=== PATIENT | male | born 1950 | race Caucasian/White ===

== ENCOUNTER 2020-02-11 21:07 | Emergency (ER) | payer OTHER ==
[~2020-02-11] VITALS: Ht 170.2 cm; Wt 63.5 kg
--- NOTE | 2020-02-11 21:08 | NUR ---
PT AAOX4. BIBSELF C/O R WRIST PAIN, NASAL BRIDGE AND SCALP ABRASION S/P TRIP AND FALL. (-) KO PLACED ON MONITOR AND PULSE OX. VSS. NO ACUTE DISTRESS NOTED. PA AT BEDSIDE FOR EVAL. AWAITING ORDERS.
--- NOTE | 2020-02-11 22:08 | NUR ---
XRAY AT BEDSIDE
--- NOTE | 2020-02-11 22:38 | NUR ---
EMT AT BEDSIDE FOR SPLINT
--- NOTE | 2020-02-11 22:45 | NUR ---
Patient discharged to home in stable condition. Written and verbal after care instructions given. Patient verbalizes understanding of instruction. Pt ambualted with steady gait. vss. Pt left with son.
[2020-02-11 22:46] VITALS: BP 127/72
== END 2020-02-11 22:46 | disposition home or self-care (01) ==
LOC: ER 21:15
DX: S52.591A Other fractures of lower end of right radius, initial encounter for closed fracture (principal); S00.31XA Abrasion of nose, initial encounter; E78.5 Hyperlipidemia, unspecified; W01.0XXA Fall on same level from slipping, tripping and stumbling without subsequent striking against object, initial encounter; Y93.89 Activity, other specified; Y92.89 Other specified places as the place of occurrence of the external cause; Y99.8 Other external cause status
CPT/HCPCS: 73110; 73130-TC